=== PATIENT | male | born 1995 | race Caucasian/White ===

== ENCOUNTER → 2025-07-14 15:45 | Outpatient (BNVA) | payer BC, SELFPAY | PROVIDERS: Visit Provider Internal Medicine Cardiovascular Disease | DX: R07.9 Chest pain, unspecified (principal); R00.1 Bradycardia, unspecified | CPT/HCPCS: 93005 ==

== ENCOUNTER 2025-08-05 15:01 | Outpatient (CLI) | payer BC, MEDICAID, SELFPAY ==
--- NOTE | 2025-08-05 15:00 | USCV_ITS ---
[facility] Age: 29 Gender: M : 1995 Exam Date: 08/05/2025 15:22 Ordering Phys: Jerson Wolfe MD ([email or web address]) Technologist: JOHN Exam Location: [facility] Indication: Bicuspid AV BP: 120 / 80 HR: 64 Rhythm: Sinus Technical Quality: Adequate MEASUREMENTS (Male / Female) Normal Values 2D ECHO LV Diastolic Diameter PLAX 5.1 cm 4.2 - 5.9 / 3.9 - 5.3 cm IVS Diastolic Thickness 0.9 cm 0.6 - 1.0 / 0.6 - 0.9 cm IVS Systolic Thickness 0.7 cm LVPW Diastolic Thickness 0.9 cm 0.6 - 1.0 / 0.6 - 0.9 cm LVPW Systolic Thickness 0.9 cm LVOT Diameter 2.3 cm LV Ejection Fraction 2D Teich 21.0 % LV Ejection Fraction MOD 4C 64.4 % LV Ejection Fraction MOD 2C 53.3 % LV Ejection Fraction 2C AL 53.1 % LA Diameter 3.0 cm RA Systolic Volume 4C AL 28.7 ml RA Systolic Volume 4C MOD 27.3 ml LA Sys Volume AL 42.9 cm cubed LA Sys Volume Index AL 25.4 cm cubed/m squared Aorta at Sinotubular Diameter 2.6 cm IVC Diameter 1.6 cm DOPPLER AV Peak Velocity 173.0 cm/s LVOT Peak Velocity 91.0 cm/s AV Area Cont Eq vti 2.3 cm squared AV Area Cont Eq pk 2.1 cm squared MV Peak Velocity 120.0 cm/s MV Area PHT 4.1 cm squared Mitral E to A Ratio 1.6 TV Peak Velocity 203.0 cm/s TR Peak Velocity 231.0 cm/s TR Peak Gradient 21.3 mmHg TV Peak E Velocity 88.0 cm/s PV Peak Velocity 107.0 cm/s FINDINGS Left Ventricle Normal left ventricular size, systolic function and wall thickness with no regional wall motion abnormality. Left ventricular ejection fraction is 64%. Normal left ventricular diastolic function. Right Ventricle Normal right ventricular size and systolic function. Right Atrium Normal right atrial size. Left Atrium Normal left atrial size. IA Septum Normal appearance of the interatrial septum. Mitral Valve Normal mitral valve structure. No mitral valve stenosis or regurgitation. Aortic Valve Bicuspid aortic valve. Mild aortic valve regurgitation. No aortic valve stenosis. Tricuspid Valve Normal tricuspid valve structure. Trace regurgitation. Normal pulmonary pressure. Pulmonic Valve Normal pulmonic valve structure. No pulmonic valve stenosis or regurgitation. Pericardium No pericardial effusion. Aorta Normal diameter of the aortic root and ascending thoracic aorta. IVC Normal IVC diameter. CONCLUSIONS Normal left ventricular size, systolic function and wall thickness with ejection fraction of 64%. Normal right ventricular size and systolic function. Bicuspid aortic valve. Mild aortic valve regurgitation. No aortic valve stenosis. Normal diameter of the aortic root and ascending thoracic aorta. Jerson Wolfe MD, FACC (Electronically Signed) Final Date: 06 August 2025 19:01 S
== END 2025-08-05 15:02 | disposition home or self-care (01) ==
LOC: RAD 15:03
PROVIDERS: PCP Family Medicine; Visit Provider Internal Medicine Cardiovascular Disease
DX: Q23.81 Bicuspid aortic valve (principal); I35.1 Nonrheumatic aortic (valve) insufficiency
CPT/HCPCS: 93306